=== PATIENT | female | born 1965 | race Caucasian/White ===

== ENCOUNTER 2017-02-07 08:31 | Emergency (ER) | payer BC ==
[~2017-02-07] VITALS: Ht 165.1 cm; Wt 87.0 kg
[~2017-02-07 08:31] MED LIST: NAPR-260 PO
[2017-02-07 08:35] VITALS: Ht 165.1 cm; Wt 87.0 kg
[2017-02-07] MEDS ORDERED: ONDANSETRON 4 MG INJ IV STA (09:42)
[2017-02-07] MEDS ORDERED: SOD CHLORIDE 0.9% 1,000 ML IV STA (09:42)
[2017-02-07] MEDS ORDERED: KETOROLAC 30 MG INJ IV STA (09:42)
[2017-02-07 10:10] LABS: BASOPHILS % 0.3 % (0.0-2.0); EOSINOPHILS # 0.3 10^3/ul (0.0-0.5); EOSINOPHILS % 3.3 % (0.0-7.0); HEMATOCRIT 36.3 % (37.0-47.0); HEMOGLOBIN 11.8 g/dl (12.0-16.0); LYMPHOCYTES # 2.5 10^3/ul (0.8-2.9); LYMPHOCYTES % 26.7 % (15.0-51.0); MEAN CORPUSCULAR HEMOGLOBIN 28.5 pg (29.0-33.0); MEAN CORPUSCULAR HGB CONC 32.5 g/dl (32.0-37.0); MEAN CORPUSCULAR VOLUME 87.7 fl (82.0-101.0); MEAN PLATELET VOLUME 9.1 fl (7.4-10.4); MONOCYTE # 0.5 10^3/ul (0.3-0.9); MONOCYTES % 5.8 % (0.0-11.0); NEUTROPHILS % 63.5 % (39.0-77.0); PLATELET COUNT 252 10^3/UL (140-415); RED BLOOD COUNT 4.14 10^6/ul (4.20-5.40); RED CELL DISTRIBUTION WIDTH 12.7 % (11.5-14.5); WHITE BLOOD COUNT 9.3 10^3/ul (4.8-10.8)
--- NOTE | 2017-02-07 10:33 | ERD ---
ER Documentation Chief Complaint Date/Time DATE: 02/07/17 TIME: 10:32 Chief Complaint RIGHT FLANK PAIN,DIFFICULTY URINATING STARTED TODAY HPI 51-year-old female presents with acute onset of sharp right-sided flank pain starting this morning around 6 AM. She describes it as sudden onset, localized. She states that earlier was difficult to void, however she was able to provide a urine sample prior to evaluation. Patient denies fevers or chills , nausea, vomiting, hematuria. ROS All systems reviewed and are negative except as per history of present illness. Medications Home Meds Active Scripts Ibuprofen* (Motrin*) 600 Mg Tab, 600 MG PO Q6, #30 TAB Prov:HOSSEIN HUIZAR PA-C 02/07/17 Cephalexin* (Keflex*) 500 Mg Capsule, 500 MG PO TID for 10 Days, CAP Prov:HOSSEIN HUIZAR PA-C 02/07/17 Naproxen* (Naprosyn*) 500 Mg Tablet, 500 MG PO BID Y for PAIN AND/OR INFLAMMATION, #30 TAB Prov:TY GIL PA-C 04/10/16 PMhx/Soc Medical and Surgical Hx: pt denies Medical Hx Hx Alcohol Use: No Hx Substance Use: No Hx Tobacco Use: No Physical Exam Vitals Vital Signs Date Time Temp Pulse Resp B/P Pulse Ox O2 Delivery O2 Flow Rate FiO2 02/07/17 08:35 97.7 79 18 187/98 98 Physical Exam General: Well-developed, well-nourished. The patient appears in no acute distress. HEENT: Head is normocephalic, atraumatic. No scleral icterus. Neck: Supple. Nontender. Lungs: Clear to auscultation. Normal air movement. Heart: Regular rate and rhythm. S1 and S2 are normal. No murmurs, gallops, or rubs. Abdomen: Soft, nontender, nondistended. Bowel sounds are normoactive. Extremities: No clubbing or cyanosis. Normal pulses. Moving extremities x 4. No weakness. Neurologic: Alert and oriented 3. No focal deficits. Skin: Normal turgor. No rash or lesions. Result Diagram: 02/07/17 1003 02/07/17 1003 Results 24 hrs Laboratory Tests Test 02/07/17 09:59 02/07/17 10:03 Urine Color YELLOW Urine Clarity SLIGHTLY CLOUDY Urine pH 7.0 Urine Specific [place] 1.017 Urine Ketones NEGATIVEmg/dL Urine Nitrite NEGATIVEmg/dL Urine Bilirubin NEGATIVEmg/dL Urine Urobilinogen NEGATIVEmg/dL Urine Leukocyte Esterase 2+Malaika/ul Urine Microscopic RBC 66/HPF Urine Microscopic WBC 66/HPF Urine Amorphous Crystals FEW/HPF Urine Hemoglobin 2+mg/dL Urine Glucose NEGATIVEmg/dL Urine Total Protein 1+mg/dl White Blood Count 9.310^3/ul Red Blood Count 4.1410^6/ul Hemoglobin 11.8g/dl Hematocrit 36.3% Mean Corpuscular Volume 87.7fl Mean Corpuscular Hemoglobin 28.5pg Mean Corpuscular Hemoglobin Concent 32.5g/dl Red Cell Distribution Width 12.7% Platelet Count 76314^3/UL Mean Platelet Volume 9.1fl Neutrophils % 63.5% Lymphocytes % 26.7% Monocytes % 5.8% Eosinophils % 3.3% Basophils % 0.3% Nucleated Red Blood Cells % 0.0/100WBC Neutrophils # (Manual) 5.910^3/ul Lymphocytes # 2.510^3/ul Monocytes # 0.510^3/ul Eosinophils # 0.310^3/ul Basophils # 0.010^3/ul Nucleated Red Blood Cells # 0.010^3/ul Sodium Level 140mmol/L Potassium Level 4.2mmol/L Chloride Level 103mmol/L Carbon Dioxide Level 28mmol/L Anion Gap 13 Blood Urea Nitrogen 20mg/dl Creatinine 0.70mg/dl Glucose Level 104mg/dl Calcium Level 8.9mg/dl Total Bilirubin 0.1mg/dl Direct Bilirubin 0.00mg/dl Indirect Bilirubin 0.1mg/dl Aspartate Amino Transf (AST/SGOT) 16IU/L Alanine Aminotransferase (ALT/SGPT) 30IU/L Alkaline Phosphatase 54IU/L Total Protein 7.7g/dl Albumin 4.5g/dl Globulin 3.20g/dl Albumin/Globulin Ratio 1.40 Lipase 76U/L Current Medications Medications (Trade) Dose Ordered Sig/Zeke Route PRN Reason Start Time Stop Time Status Last Admin Dose Admin Sodium Chloride (NS) 1,000 ml @ 1,000 mls/hr Q1H STAT IV 02/07/17 09:42 02/07/17 10:41 DC 02/07/17 10:10 Ondansetron HCl (Zofran Inj) 4 mg ONCE STAT IV 02/07/17 09:42 02/07/17 09:43 DC 02/07/17 10:08 Ketorolac Tromethamine 30 mg 30 mg ONCE STAT IV 02/07/17 09:42 02/07/17 09:43 DC 02/07/17 10:09 Ceftriaxone Sodium (Rocephin) 50 ml @ 100 mls/hr ONCE ONCE IVPB 02/07/17 12:00 02/07/17 12:29 02/07/17 11:50 DIAGNOSTIC IMAGING REPORT Patient: CARMITA PETERSON : 1965 Age: 51 Sex: F MR #: [id number] DOS: 02/07/1742 Ordering MD: HOSSEIN HUIZAR PA-C Location: [facility] Room/Bed: PROCEDURE: CT Abdomen and Pelvis without contrast CLINICAL INDICATION: Right flank pain TECHNIQUE: Transaxial images were obtained through the abdomen and pelvis on a multi-slice scanner without the intravenous contrast administration. No oral contrast had previously been given. Sagittal and coronal re-formations were subsequently reconstructed. One or more of the following dose reduction techniques were used: - Automated exposure control. - Adjustment of the mA and/or kV according to patient size. - Use of iterative reconstruction technique. Radiation dose: CTDIvol = 18.51 mGy; DLP = 1051.56 mGy-cm. COMPARISON: No prior studies are available for comparison. FINDINGS: Lung bases: The visualized lung bases appear unremarkable. Liver: The liver is enlarged with no focal lesion identified. Gallbladder: The wall is not thickened. No radiopaque stones are identified. Bile ducts: The intra and extrahepatic bile ducts are normal in caliber. Pancreas: Appears normal with no mass or inflammation evident. Spleen: The spleen is borderline enlarged. Adrenals: Normal with no mass identified. Kidneys, ureters and bladder: The kidneys are normal in size and there is no mass, pathological calcification, or hydronephrosis evident. There is no perinephric stranding. The ureters are normal in caliber and no ureteroliths are identified. The bladder appears unremarkable. Reproductive organs: An IUD is seen within the anteverted uterus. No adnexal mass is identified. Stomach and bowel: There is a small hiatal hernia. There are a few scattered colonic diverticuli but there is no evidence of bowel obstruction or inflammation. Appendix: The vermiform appendix is not identified. Peritoneum: No free intraperitoneal fluid or air is identified. Aorta: Normal in caliber with no aneurysmal dilatation. IVC: Unremarkable. Lymph nodes: No pathologically enlarged nodes are identified. Osseous structures: The osseous elements appear intact. IMPRESSION: 1. Normal appearing kidneys without evidence of urinary outflow obstruction or ureterolithiasis. The bladder appears normal. 2. Hepatomegaly and borderline splenomegaly with no focal lesions. 3. Small hiatal hernia. A few scattered diverticuli are seen in the colon but there is no evidence of bowel obstruction or inflammation. The vermiform appendix is not discretely identified. 4. An IUD is seen within the endometrial cavity. 5. There is no free intraperitoneal fluid or air. Physician Lianne Date Time Electronically viewed and signed by Physician Lianne on 02/07/2017 11:12 RH/ CC: HOSSEIN HUIZAR PA-C Procedures/MDM ED course: Patient an IV line established, blood and urine obtained, she was given Toradol 30 mg, Zofran 4 mg, fluid bolus of normal saline IV.Given a dose of Rocephin 1 g IV. MDM: 51-year-old female comes emergency department with right-sided flank that started acutely this morning, Patient has evidence of a urinary tract infection with flank pain. There are no signs of pyelonephritis, she does not have any fever history of vomiting. No evidence of kidney stones or septic kidney stones , acute cholecystitis. For acute intra-abdominal process. She was given a dose of Rocephin in the emergency department, she states her pain is much better and will be discharged home with p.o. antibiotics. Departure Diagnosis: Primary Impression: UTI (urinary tract infection) Additional Impression: Flank pain Condition: Good HOSSEIN HUIZAR PA-C Feb 07, 2017 10:33
[2017-02-07 10:37] LABS: ALBUMIN 4.5 g/dl (3.3-4.9); ALBUMIN/GLOBULIN RATIO 1.4; BILIRUBIN,INDIRECT 0.1 mg/dl (0-1.1); BILIRUBIN,TOTAL 0.1 mg/dl (0.2-1.3); CALCIUM 8.9 mg/dl (8.4-10.2); CREATININE 0.7 mg/dl (0.44-1.00); POTASSIUM 4.2 mmol/L (3.5-5.1); TOTAL PROTEIN 7.7 g/dl (6.1-8.1)
--- NOTE | 2017-02-07 11:23 | RADRPT ---
PROCEDURE: CT Abdomen and Pelvis without contrast CLINICAL INDICATION: Right flank pain TECHNIQUE: Transaxial images were obtained through the abdomen and pelvis on a multi-slice scanner without the intravenous contrast administration. No oral contrast had previously been given. Sagit hoda and coronal re-formations were subsequently reconstructed. One or more of the following dose reduction techniques were used: - Automated exposure control. - Adjustment of the mA and/or kV according to patient size. - Use of iterative reconstruction technique. Radiation dose: CTDIvol = 18.51 mGy; DLP = 1051.56 mGy-cm. COMPARISON: No prior studies are available for comparison. FINDINGS: Lung bases: The visualized lung bases appear unremarkable. Liver: The liver is enlarged with no focal lesion identified. Gallbladder: The wall is not thickened. No radiopaque stones are identified. Bile ducts: The intra and extrahepatic bile ducts are normal in caliber. Pancreas: Appears normal with no mass or inflammation evident. Spleen: The spleen is borderline enlarged. Adrenals: Normal with no mass identified. Kidneys, ureters and bladder: The kidneys are normal in size and there is no mass, pathological calc ification, or hydronephrosis evident. There is no perinephric stranding. The ureters are normal in c aliber and no ureteroliths are identified. The bladder appears unremarkable. Reproductive organs: An IUD is seen within the anteverted uterus. No adnexal mass is identified. Stomach and bowel: There is a small hiatal hernia. There are a few scattered colonic diverticuli but there is no evidence of bowel obstruction or inflammation. Appendix: The vermiform appendix is not identified. Peritoneum: No free intraperitoneal fluid or air is identified. Aorta: Normal in caliber with no aneurysmal dilatation. IVC: Unremarkable. Lymph nodes: No pathologically enlarged nodes are identified. Osseous structures: The osseous elements appear intact. IMPRESSION: 1. Normal appearing kidneys without evidence of urinary outflow obstruction or ureterolithiasis. Th e bladder appears normal. 2. Hepatomegaly and borderline splenomegaly with no focal lesions. 3. Small hiatal hernia. A few scattered diverticuli are seen in the colon but there is no evidence of bowel obstruction or inflammation. The vermiform appendix is not discretely identified. 4. An IUD is seen within the endometrial cavity. 5. There is no free intraperitoneal fluid or air. Ashish Machado Physician Date Time Electronically viewed and signed by Ashish Machado Physician on 02/07/2017 11:12 /
[2017-02-07 11:26] LABS: ADD UMIC YES; UR AMORPHOUS CRYSTAL FEW /HPF (NONE SEEN); UR ASCORBIC ACID NEGATIVE (NEGATIVE); UR BILIRUBIN (Dip) NEGATIVE (NEGATIVE); UR BLOOD (Dip) 2+ mg/dL (NEGATIVE); UR CLARITY SLIGHTLY CLOUDY (CLEAR); UR COLOR YELLOW (YELLOW); UR GLUCOSE (Dip) NEGATIVE (NEGATIVE); UR KETONES (Dip) NEGATIVE (NEGATIVE); UR LEUKOCYTE ESTERASE (Dip) 2+ Leu/ul (NEGATIVE); UR NITRITE (Dip) NEGATIVE (NEGATIVE); UR RBC 66 /HPF (0-5); UR SPECIFIC GRAVITY (Dip) 1.017 (1.003-1.030); UR TOTAL PROTEIN (Dip) 1+ mg/dl (NEGATIVE); UR UROBILINOGEN (Dip) NEGATIVE (NEGATIVE); UR WBC CLUMPS FEW /HPF (NONE SEEN)
[2017-02-07] MEDS ORDERED: CEFTRIAXONE 1 GM/50 ML (PMX) 50 ML IVPB ONE (12:00)
[2017-02-07] MEDS ORDERED: CEPH-443 PO (12:04)
[2017-02-07] MEDS ORDERED: IBUP-1542 PO (12:04)
== END 2017-02-07 12:16 | disposition home or self-care (01) ==
LOC: FTE 08:31
DX: N39.0 Urinary tract infection, site not specified (principal)
CPT/HCPCS: 36415; 74176; 80053; 81001; 83690; 85025; 96374; 96375; J0696; J1885; J2405; J7030; Z7502

== ENCOUNTER 2017-08-20 23:44 | Emergency (ER) | END 2017-08-21 03:56 | disposition home or self-care (01) ==

== ENCOUNTER 2018-03-13 09:24 | Day surgery (SDC) | END 2018-03-13 12:43 | disposition home or self-care (01) ==